=== PATIENT | male | born 1960 | race American Indian/Alaskan Native ===

== ENCOUNTER 2016-10-05 00:34 | Emergency (ER) | payer MEDICARE ==
[2016-10-05 01:43] LABS: Basophils % (Auto) 0.4 % (0.0-1.8); Eosinophils % (Auto) 1.1 % (0.0-4.3); Hematocrit 42.9 % (35.5-45.6); Hemoglobin 14.2 gm/dl (11.8-15.2); Mean Corpuscular HGB Conc 33 % (32-34); Mean Corpuscular Hemoglobin 27 pg (28-32); Mean Corpuscular Volume 83 fl (84-94); Platelet Count 156 K/mm3 (140-440); Red Cell Distribution Width 14.6 % (13.2-15.2); White Blood Count 9.1 K/mm3 (4.5-11.0)
[2016-10-05 02:20] LABS: Alanine Aminotransferase 11 units/L (7-56); Albumin 3.8 g/dL (3.9-5); Alkaline Phosphatase 90 units/L (35-129); BUN/Creatinine Ratio 11.81; Bilirubin,Total 0.3 mg/dL (0.1-1.2); Blood Urea Nitrogen 13 mg/dL (9-20); Calcium 9.4 mg/dL (8.4-10.2); Carbon Dioxide 29 mmol/L (22-30); Chloride 98.7 mmol/L (98-107); Glucose 205 mg/dL (75-100); Lipase 90 units/L (13-60); Potassium 4.3 mmol/L (3.6-5.0); Sodium 139 mmol/L (137-145); Total Protein 7.7 g/dL (6.3-8.2)
[2016-10-05 02:25] LABS: Anion Gap 16 mmol/L
[2016-10-05] MEDS ORDERED: DILAUDID IV ONE ×2 (03:27→04:57)
[2016-10-05] MEDS ORDERED: ZOFRAN IV ONE (03:28)
[2016-10-05] MEDS ORDERED: NACL ONE (03:43)
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
--- NOTE | 2016-10-05 04:43 | Cat Scan Report ---
FINAL REPORT PROCEDURE: CT ABDOMEN PELVIS W CON TECHNIQUE: Computerized axial tomography of the abdomen and pelvis was performed after the IV injection of iodinated nonionic contrast. HISTORY: upper abdominal pain COMPARISON: No prior studies are available for comparison. FINDINGS: Visualized lower thorax: No significant abnormality. Liver: Normal size and attenuation. Spleen: Normal size and attenuation. Gallbladder and biliary system: Normal. Pancreas: Normal. Adrenals: Normal. Kidneys: Both kidneys have normal size. No hydronephrosis. No renal stones or masses.. GI tract: The stomach is normal. The small bowel has a normal caliber. No obstruction, ileus or enteritis. The cecum, appendix and colon are normal. The. Lymph nodes and mesentery: Normal. Vasculature: Normal. Bladder: Normal. Reproductive organs: Normal. Peritoneum: No free fluid. Musculoskeletal structures: No significant abnormality. Other: None. IMPRESSION: There is no evidence of intestinal or urinary tract obstruction. No ileus or enteritis. The appendix is normal.
[2016-10-05 06:21] VITALS: BP 161/74
== END 2016-10-05 05:50 | disposition home or self-care (01) ==
LOC: ED 00:34
DX: K85.00 Idiopathic acute pancreatitis without necrosis or infection (principal); I10 Essential (primary) hypertension; I25.2 Old myocardial infarction; I50.9 Heart failure, unspecified; E11.9 Type 2 diabetes mellitus without complications; F31.9 Bipolar disorder, unspecified; F17.200 Nicotine dependence, unspecified, uncomplicated
CPT/HCPCS: 36415; 74177; 80053; 82962; 83690; 85025; 93005; 93010; 96374; 96375; 96376; 99284; J1170; J2405; Q9967

== ENCOUNTER 2018-03-03 16:35 | Emergency (ER) | payer MEDICARE ==
[2018-03-03 18:10] LABS: Basophils % (Auto) 0.6 % (0.0-1.8); Eosinophils # (Auto) 0.1 K/mm3 (0.0-0.4); Hematocrit 45.4 % (35.5-45.6); Hemoglobin 14.7 gm/dl (11.8-15.2); Lymphocytes # (Auto) 1.9 K/mm3 (1.2-5.4); Lymphocytes % (Auto) 28.8 % (13.4-35.0); Mean Corpuscular HGB Conc 32 % (32-34); Mean Corpuscular Hemoglobin 27 pg (28-32); Mean Corpuscular Volume 84 fl (84-94); Monocytes # (Auto) 0.5 K/mm3 (0.0-0.8); Monocytes % (Auto) 7.8 % (0.0-7.3); Platelet Count 181 K/mm3 (140-440); Red Blood Count 5.38 M/mm3 (3.65-5.03); Red Cell Distribution Width 14.6 % (13.2-15.2)
[2018-03-03 18:13] LABS: BUN/Creatinine Ratio 11; Blood Urea Nitrogen 16 mg/dL (9-20); Hemolysis Index 10
[2018-03-03] MEDS ORDERED: ZOFRAN PO PRN (21:11)
[2018-03-03] MEDS ORDERED: ATIVAN IM PRN (21:13)
[2018-03-03] MEDS ORDERED: TYLENOL PO PRN (21:13)
[2018-03-03] MEDS ORDERED: HALDOL IM PRN (21:13)
[2018-03-03] MEDS ORDERED: MOTRIN PO PRN (21:14)
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
[2018-03-03] MEDS: HALFPRIN EC PO SCH (22:03)
[2018-03-03] MEDS: GLUCOTROL XL PO SCH (22:03)
[2018-03-03] MEDS: COREG PO SCH (23:35)
[2018-03-03] MEDS: ZESTRIL PO SCH (23:35)
[2018-03-03] MEDS: PEPCID PO SCH (23:35)
[2018-03-04 03:18] LABS: Bilirubin,Urine NEG (Negative); Blood,Urine SM (Negative); Color,Urine Yellow (Yellow)
[2018-03-04 03:21] LABS: Amphetamine Screen,Urine PRESUMPTIVE NEGATIVE; Benzodiazepines Screen,Urine PRESUMPTIVE NEGATIVE; Methadone Screen,Urine PRESUMPTIVE NEGATIVE; Opiate Screen,Urine PRESUMPTIVE NEGATIVE
[2018-03-04 03:33] LABS: Cannabinoid Screen,Urine PRESUMPTIVE POSITIVE; Cocaine Screen,Urine PRESUMPTIVE POSITIVE
[2018-03-04] MEDS: GLUCOTROL XL PO SCH (10:21)
[2018-03-04] MEDS: COREG PO SCH (10:21)
[2018-03-04] MEDS: PEPCID PO SCH (10:21)
[2018-03-04] MEDS: HALFPRIN EC PO SCH (10:21)
[2018-03-04] MEDS: ZESTRIL PO SCH (10:22)
[2018-03-04 12:14] VITALS: BP 129/59
== END 2018-03-04 12:12 ==
LOC: ED 16:35
DX: F31.9 Bipolar disorder, unspecified (principal); I10 Essential (primary) hypertension; I25.2 Old myocardial infarction; E11.9 Type 2 diabetes mellitus without complications; M19.90 Unspecified osteoarthritis, unspecified site; F17.200 Nicotine dependence, unspecified, uncomplicated; Z95.0 Presence of cardiac pacemaker; Z95.5 Presence of coronary angioplasty implant and graft
CPT/HCPCS: 36415; 80048; 80307; 81001; 82962; 85025; 99285; A9270; G0480; 80320

== ENCOUNTER 2018-12-17 14:56 | Inpatient (IN) | payer MEDICARE ==
--- NOTE | 2018-12-17 15:29 | Emergency Department Report ---
Blank Doc - Documentation Documentation: This is a 58-year-old male that presents with chest pain and bilateral leg hemalatha ns. This initial assessment/diagnostic orders/clinical plan/treatment(s) is/are subject to change based on patient's health status, clinical progression and re- assessment by fellow clinical providers in the ED. Further treatment and workup at subsequent clinical providers discretion. Patient/guardians urged not to elope from the ED as their condition may be serious if not clinically assessed and managed. Initial orders include: 1- Patient sent to MAIN ED for further evaluation and treatment 2- labs 3- EKG 4- CXR
[2018-12-17 15:53] LABS: Hematocrit 35.6 % (35.5-45.6); Hemoglobin 12.1 gm/dl (11.8-15.2); Mean Corpuscular HGB Conc 34 % (32-34); Mean Corpuscular Volume 82 fl (84-94); Platelet Count 185 K/mm3 (140-440); Red Blood Count 4.32 M/mm3 (3.65-5.03); Red Cell Distribution Width 14.7 % (13.2-15.2)
[2018-12-17 16:03] LABS: INR 0.93 (0.87-1.13)
[2018-12-17 16:04] LABS: Partial Thromboplastin Time 27.4 Sec. (24.2-36.6)
[2018-12-17 16:18] LABS: Creatine Kinase MB 5.9 ng/mL (0.0-4.0)
[2018-12-17 16:19] LABS: BUN/Creatinine Ratio 10; Blood Urea Nitrogen 12 mg/dL (9-20); Hemolysis Index 25
[2018-12-17] MEDS ORDERED: NITROSTAT SL ONE (16:43)
[2018-12-17] MEDS ORDERED: ASPIRIN PO ONE (16:43)
--- NOTE | 2018-12-17 16:54 | XRay Report ---
PROCEDURE: XR CHEST ROUTINE 2V TECHNIQUE: PA and lateral views of the chest. HISTORY: Chest Pain COMPARISONS: CXR 01/16/2018 FINDINGS: Lines, tubes, and devices: 3-lead right subclavian pacemaker has been placed terminating in the regio n of the right atrium, right ventricle, and left ventricle Lungs and pleura: Trachea is normal in position. Lungs are clear of infiltrate, pleural effusion, vas cular congestion, or pneumothorax. No change Cardiomediastinal silhouette: Cardiac and mediastinal silhouettes are unremarkable. Other: Bony structures are intact. IMPRESSION: No acute cardiopulmonary process seen. No change.. This document is electronically signed by Isaura Sim MD., December 17 2018 04:52:23 PM ET
[2018-12-17 17:06] LABS: Basophils % (Manual) 0 % (0.0-1.8); Eosinophils % (Manual) 0 % (0.0-4.3); Total Cells Counted 100
[2018-12-17 17:07] LABS: Ovalocytes Few
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
[2018-12-17] MEDS ORDERED: MORPHINE IV ONE (19:58)
--- NOTE | 2018-12-17 20:35 | Cat Scan Report ---
PROCEDURE: CT NECK W CON TECHNIQUE: Following administration of IV contrast axial helical imaging was performed through the n remy with sagittal and coronal reformatted images obtained. HISTORY: sore throat, muffled voice, diff swallowing COMPARISONS: CT angiogram chest also performed today FINDINGS: There is no evidence of a cervical mass and no evidence of an inflammatory process in the cervical so ft tissues. There is no evidence of compromise of the airway. The epiglottis and aryepiglottic folds are normal thickness. The thyroid gland is normal in appearance. There are mildly prominent cervical lymph nodes that are nonspecific in appearance but are most likel y inflammatory in nature. There is normal enhancement of the major cervical vascular structures. There is plaque formation in t he right carotid bifurcation with less than 30% stenosis of the proximal right internal carotid arter y. There are are bilateral mandibular torus and a torus palatini. The paranasal and mastoid sinuses are notable for moderate left sphenoid sinus mucosal thickening and mild right sphenoid sinus mucosal thickening. The mastoid sinuses are unremarkable. The visualized portions of the orbits are unremarkable. The cervical spine is notable for the appearance of ankylosis with marked ossification of the anterio r longitudinal ligament. There is multiple level moderate to marked cervical canal stenosis secondary to spondylitic change an d ossification of the posterior longitudinal ligament superimposed on congenital cervical canal steno sis. IMPRESSION: 1. No evidence of a cervical mass and no evidence of an inflammatory process in the cervical soft tis sues. 2. No evidence of compromise of the airway. 3. Mildly prominent cervical lymph nodes that are most likely inflammatory in nature. 4. Mandibular torus and torus palatini. 5. Less than 30% stenosis proximal right internal carotid artery. 6. 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 If further imaging is required, MRI may be helpful. 7. Sphenoid sinus disease. This document is electronically signed by Mary Conway MD., December 17 2018 08:33:33 PM ET
--- NOTE | 2018-12-17 20:44 | Cat Scan Report ---
PROCEDURE: CT ANGIO CHEST TECHNIQUE: Following administration of IV contrast axial helical imaging was performed through the c hest with sagittal and coronal reformatted images and maximum intensity projection images obtained. HISTORY: chest pain, sob COMPARISONS: CT neck also performed today and chest x-ray also performed today FINDINGS: There is no evidence of infiltrate, pneumothorax or pleural fluid collection. The trachea and bronchi are patent. The heart is enlarged with multiple lead AICD. There appears to be increased thickness of the left ve ntricular wall. The thoracic aorta is normal caliber and without evidence of dissection. There is no evidence of intrathoracic adenopathy. No filling defects are demonstrated within the pulmonary arteries to suggest the presence of pulmonar y artery emboli. The visualized portion of the upper abdomen is unremarkable. The bony structures are notable for spondylitic change of the thoracic spine. IMPRESSION: 1. No evidence of an acute intrathoracic process. 2. No evidence of pulmonary artery emboli and no evidence of aortic dissection. 3. Cardiomegaly with multiple lead AICD and appearance of increased thickness of the left ventricular wall. This document is electronically signed by Mary Conway MD., December 17 2018 08:42:05 PM ET
[2018-12-17 20:57] LABS: Amphetamine Screen,Urine PRESUMPTIVE NEGATIVE; Benzodiazepines Screen,Urine PRESUMPTIVE NEGATIVE; Cannabinoid Screen,Urine PRESUMPTIVE NEGATIVE; Cocaine Screen,Urine PRESUMPTIVE NEGATIVE; Methadone Screen,Urine PRESUMPTIVE NEGATIVE; Opiate Screen,Urine PRESUMPTIVE NEGATIVE
[2018-12-17] MEDS ORDERED: ZOFRAN IV PRN (22:00)
[2018-12-17] MEDS ORDERED: D50W (25GM) Syringe IV PRN (22:00)
[2018-12-17] MEDS ORDERED: SODIUM CHLORIDE FLUSH SYRINGE 10 ML IV PRN (22:00)
[2018-12-17] MEDS ORDERED: TYLENOL PO PRN (22:00)
[2018-12-17] MEDS ORDERED: APRESOLINE IV PRN (22:04)
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
[2018-12-17] MEDS: SODIUM CHLORIDE FLUSH SYRINGE 10 ML IV SCH (22:17)
[2018-12-17 23:19] LABS: Creatine Kinase MB 2.8 ng/mL (0.0-4.0)
[2018-12-18] MEDS ORDERED: APRESOLINE ONE (00:50)
[2018-12-18] MEDS: DUONEB *Not for PRN Use IH SCH ×4 (01:54→21:51)
[2018-12-18] MEDS ORDERED: D50W (25GM) Syringe IV PRN (06:24)
[2018-12-18 06:35] LABS: Basophils % (Auto) 0.6 % (0.0-1.8); Eosinophils # (Auto) 0.2 K/mm3 (0.0-0.4); Eosinophils % (Auto) 2.5 % (0.0-4.3); Hematocrit 36.1 % (35.5-45.6); Lymphocytes # (Auto) 2.4 K/mm3 (1.2-5.4); Lymphocytes % (Auto) 38.3 % (13.4-35.0); Mean Corpuscular HGB Conc 33 % (32-34); Mean Corpuscular Volume 83 fl (84-94); Monocytes # (Auto) 0.6 K/mm3 (0.0-0.8); Monocytes % (Auto) 8.8 % (0.0-7.3); Platelet Count 172 K/mm3 (140-440); Red Blood Count 4.35 M/mm3 (3.65-5.03); Red Cell Distribution Width 14.4 % (13.2-15.2)
[2018-12-18 06:57] LABS: Creatine Kinase MB 3.9 ng/mL (0.0-4.0)
[2018-12-18 06:58] LABS: BUN/Creatinine Ratio 12; Blood Urea Nitrogen 12 mg/dL (9-20); Calcium 8.9 mg/dL (8.4-10.2); Hemolysis Index 6
[2018-12-18] MEDS: GLUCOPHAGE PO SCH (08:25)
[2018-12-18] MEDS: GLUCOTROL XL PO SCH ×2 (08:25→18:09)
[2018-12-18] MEDS: HumaLOG SUB-Q SCH ×4 (08:26→22:25)
[2018-12-18] MEDS: NORVASC PO SCH (09:38)
[2018-12-18] MEDS: COREG PO SCH ×2 (09:38→22:23)
[2018-12-18] MEDS: HALFPRIN EC PO SCH (09:38)
[2018-12-18] MEDS: LOVENOX SUB-Q SCH (09:39)
[2018-12-18] MEDS: SODIUM CHLORIDE FLUSH SYRINGE 10 ML IV SCH ×2 (09:39→22:25)
[2018-12-18] MEDS ORDERED: LOVENOX SUB-Q SCH (10:00)
[2018-12-18] MEDS ORDERED: NON-FORMULARY (Norvasc 10 MG) PO SCH (10:00)
[2018-12-18] MEDS: HABITROL TD SCH (10:58)
--- NOTE | 2018-12-18 11:46 | Event Note ---
Date: 12/18/18 Cardiology note dictated. #1 chest pain atypical #2 cardiomyopathy status post AICD #3 hypertension #4 hyperlipidemia #5 diabetes #6 leg pains Cardiac status appears to be satisfactory we will monitor and follow along with you. Thank you Dr. TONI Juárez
[2018-12-18] MEDS: NEURONTIN PO SCH ×2 (14:34→22:25)
--- NOTE | 2018-12-18 16:34 | Progress Note ---
Assessment and Plan Assessment and plan: --Unstable angina; continue current cardiac medications Cardiology evaluation noted and appreciated, [place] screen 3 negative Supportive care --History of coronary artery disease; continue current management Cardiology following --Acute on chronic systolic congestive heart failure Continue current antiseizure medications cardiology following --Type 2 diabetes mellitus; Accu-Cheks sliding scale coverage ADA diet Insulin as needed --Dyslipidemia; continue statin --DVT prophylaxis; Lovenox --Hoarseness; for many years, patient advised many times to see ENT For further evaluation as outpatient Plan monitor patient closely and adjust the management as needed Follow-up cardiology evaluation and recommendations History Interval history: Patient seen and examined medical records reviewed No new events reported by the nursing staff Admitted with chest pain feels slightly better Cardiology following Alert awake oriented 3 Vital signs noted Hospitalist Physical - Constitutional Vitals: Temp Pulse Resp BP Pulse Ox 97.8 F 76 18 141/56 96 12/18/18 08:14 12/18/18 13:55 12/18/18 13:55 12/18/18 09:38 12/18/18 10:00 General appearance: Present: no acute distress, well-nourished - EENT Eyes: Present: PERRL, EOM intact - Neck Neck: Present: supple, normal ROM - Respiratory Respiratory effort: normal Respiratory: bilateral: diminished, negative: rales, rhonchi, wheezing - Cardiovascular Rhythm: regular Heart Sounds: Present: S1 & S2 - Extremities Extremities: no ischemia, No edema - Abdominal General gastrointestinal: soft, non-tender, non-distended, normal bowel sounds - Integumentary Integumentary: Present: clear, warm - Psychiatric Psychiatric: appropriate mood/affect, cooperative - Neurologic Neurologic: CNII-XII intact, moves all extremities Results - Labs CBC & Chem 7: 12/18/18 05:38 12/18/18 05:38 Labs: Laboratory Last Values WBC 6.3 K/mm3 (4.5-11.0) 12/18/18 05:38 RBC 4.35 M/mm3 (3.65-5.03) 12/18/18 05:38 Hgb 12.0 gm/dl (11.8-15.2) 12/18/18 05:38 Hct 36.1 % (35.5-45.6) 12/18/18 05:38 MCV 83 fl (84-94) L 12/18/18 05:38 MCH 28 pg (28-32) 12/18/18 05:38 MCHC 33 % (32-34) 12/18/18 05:38 RDW 14.4 % (13.2-15.2) 12/18/18 05:38 Plt Count 172 K/mm3 (140-440) 12/18/18 05:38 Lymph % (Auto) 38.3 % (13.4-35.0) H 12/18/18 05:38 [place] % (Auto) 8.8 % (0.0-7.3) H 12/18/18 05:38 Eos % (Auto) 2.5 % (0.0-4.3) 12/18/18 05:38 Baso % (Auto) 0.6 % (0.0-1.8) 12/18/18 05:38 Lymph # 2.4 K/mm3 (1.2-5.4) 12/18/18 05:38 [place] # 0.6 K/mm3 (0.0-0.8) 12/18/18 05:38 Eos # 0.2 K/mm3 (0.0-0.4) 12/18/18 05:38 Baso # 0.0 K/mm3 (0.0-0.1) 12/18/18 05:38 Add Manual Diff Complete 12/17/18 15:43 Total Counted 100 12/17/18 15:43 Seg Neutrophils % 49.8 % (40.0-70.0) 12/18/18 05:38 Seg Neuts % (Manual) 68.0 % (40.0-70.0) 12/17/18 15:43 Band Neutrophils % 0 % 12/17/18 15:43 Lymphocytes % (Manual) 27.0 % (13.4-35.0) 12/17/18 15:43 Reactive Lymphs % (Man) 0 % 12/17/18 15:43 Monocytes % (Manual) 5.0 % (0.0-7.3) 12/17/18 15:43 Eosinophils % (Manual) 0 % (0.0-4.3) 12/17/18 15:43 Basophils % (Manual) 0 % (0.0-1.8) 12/17/18 15:43 Metamyelocytes % 0 % 12/17/18 15:43 Myelocytes % 0 % 12/17/18 15:43 Promyelocytes % 0 % 12/17/18 15:43 Blast Cells % 0 % 12/17/18 15:43 Nucleated RBC % Not Reportable 12/17/18 15:43 Seg Neutrophils # 3.1 K/mm3 (1.8-7.7) 12/18/18 05:38 Seg Neutrophils # Man 5.2 K/mm3 (1.8-7.7) 12/17/18 15:43 Band Neutrophils # 0.0 K/mm3 12/17/18 15:43 Lymphocytes # (Manual) 2.1 K/mm3 (1.2-5.4) 12/17/18 15:43 Abs React Lymphs (Man) 0.0 K/mm3 12/17/18 15:43 Monocytes # (Manual) 0.4 K/mm3 (0.0-0.8) 12/17/18 15:43 Eosinophils # (Manual) 0.0 K/mm3 (0.0-0.4) 12/17/18 15:43 Basophils # (Manual) 0.0 K/mm3 (0.0-0.1) 12/17/18 15:43 Metamyelocytes # 0.0 K/mm3 12/17/18 15:43 Myelocytes # 0.0 K/mm3 12/17/18 15:43 Promyelocytes # 0.0 K/mm3 12/17/18 15:43 Blast Cells # 0.0 K/mm3 12/17/18 15:43 WBC Morphology Not Reportable 12/17/18 15:43 Hypersegmented Neuts Not Reportable 12/17/18 15:43 Hyposegmented Neuts Not Reportable 12/17/18 15:43 Hypogranular Neuts Not Reportable 12/17/18 15:43 Smudge Cells Not Reportable 12/17/18 15:43 Toxic Granulation Not Reportable 12/17/18 15:43 Toxic Vacuolation Not Reportable 12/17/18 15:43 Dohle Bodies Not Reportable 12/17/18 15:43 Pelger-Huet Anomaly Not Reportable 12/17/18 15:43 Kathia Rods Not Reportable 12/17/18 15:43 Platelet Estimate Appears normal 12/17/18 15:43 Clumped Platelets Not Reportable 12/17/18 15:43 Plt Clumps, EDTA Not Reportable 12/17/18 15:43 Large Platelets Not Reportable 12/17/18 15:43 Giant Platelets Not Reportable 12/17/18 15:43 Platelet Satelliting Not Reportable 12/17/18 15:43 Plt Morphology Comment Not Reportable 12/17/18 15:43 RBC Morphology Not Reportable 12/17/18 15:43 Dimorphic RBCs Not Reportable 12/17/18 15:43 Polychromasia Not Reportable 12/17/18 15:43 Hypochromasia Not Reportable 12/17/18 15:43 Poikilocytosis Not Reportable 12/17/18 15:43 Anisocytosis Not Reportable 12/17/18 15:43 Microcytosis Not Reportable 12/17/18 15:43 Macrocytosis Not Reportable 12/17/18 15:43 Spherocytes Not Reportable 12/17/18 15:43 Pappenheimer Bodies Not Reportable 12/17/18 15:43 Sickle Cells Not Reportable 12/17/18 15:43 Target Cells Not Reportable 12/17/18 15:43 Tear Drop Cells Not Reportable 12/17/18 15:43 Ovalocytes Few 12/17/18 15:43 Helmet Cells Not Reportable 12/17/18 15:43 [place] Bodies Not Reportable 12/17/18 15:43 [place] Rings Not Reportable 12/17/18 15:43 Eneida Cells Not Reportable 12/17/18 15:43 Bite Cells Not Reportable 12/17/18 15:43 Crenated Cell Not Reportable 12/17/18 15:43 Elliptocytes Not Reportable 12/17/18 15:43 Acanthocytes (Spur) Not Reportable 12/17/18 15:43 Rouleaux Not Reportable 12/17/18 15:43 Hemoglobin C Crystals Not Reportable 12/17/18 15:43 Schistocytes Not Reportable 12/17/18 15:43 Malaria parasites Not Reportable 12/17/18 15:43 Zander Bodies Not Reportable 12/17/18 15:43 Hem Pathologist Commnt No 12/17/18 15:43 PT 13.0 Sec. (12.2-14.9) 12/17/18 15:43 INR 0.93 (0.87-1.13) 12/17/18 15:43 APTT 27.4 Sec. (24.2-36.6) 12/17/18 15:43 Sodium 143 mmol/L (137-145) 12/18/18 05:38 Potassium 3.7 mmol/L (3.6-5.0) 12/18/18 05:38 Chloride 102.9 mmol/L (98-107) 12/18/18 05:38 Carbon Dioxide 27 mmol/L (22-30) 12/18/18 05:38 Anion Gap 17 mmol/L 12/18/18 05:38 BUN 12 mg/dL (9-20) 12/18/18 05:38 Creatinine 1.0 mg/dL (0.8-1.5) 12/18/18 05:38 Estimated GFR > 60 ml/min 12/18/18 05:38 BUN/Creatinine Ratio 12 % 12/18/18 05:38 Glucose 295 mg/dL (75-100) H 12/18/18 05:38 POC Glucose 200 (70-105) H 12/18/18 11:39 Calcium 8.9 mg/dL (8.4-10.2) 12/18/18 05:38 Total Creatine Kinase 108 units/L (55-170) 12/18/18 05:38 CK-MB (CK-2) 3.9 ng/mL (0.0-4.0) 12/18/18 05:38 CK-MB (CK-2) Rel Index 3.6 (0-4) 12/18/18 05:38 Troponin T < 0.010 ng/mL (0.00-0.029) 12/18/18 05:38 Urine Opiates Screen Presumptive negative 12/17/18 20:36 Urine Methadone Screen Presumptive negative 12/17/18 20:36 Ur Barbiturates Screen Presumptive negative 12/17/18 20:36 Ur Phencyclidine Scrn Presumptive negative 12/17/18 20:36 Ur Amphetamines Screen Presumptive negative 12/17/18 20:36 U Benzodiazepines Scrn Presumptive negative 12/17/18 20:36 Urine Cocaine Screen Presumptive negative 12/17/18 20:36 U Marijuana (THC) Screen Presumptive negative 12/17/18 20:36 Drugs of Abuse Note Disclamer 12/17/18 20:36 Active Medications - Current Medications Current Medications: Generic Name Dose Route Start Last Admin Trade Name Freq PRN Reason Stop Dose Admin Acetaminophen 650 mg 12/17/18 22:00 Tylenol PO Q4H PRN Pain MILD(1-3)/Fever >100.5/DE [place] F[place] Albuterol/Ipratropium 1 ampul 12/18/18 02:00 12/18/18 13:38 Duoneb *Not For Prn Use* IH 1 ampul Q6HRT JAZMINE Administration Amlodipine Besylate 10 mg 12/18/18 10:00 12/18/18 09:38 Norvasc PO 10 mg DAILY JAZMINE Administration Aspirin 81 mg 12/18/18 10:00 12/18/18 09:38 Halfprin Ec PO 81 mg QDAY JAZMINE Administration Atorvastatin Calcium 40 mg 12/18/18 10:00 12/18/18 09:37 Lipitor PO 40 mg DAILY JAZMINE Administration Carvedilol 25 mg 12/18/18 10:00 12/18/18 09:38 Coreg PO 25 mg BID JAZMINE Administration Dextrose 50 ml 12/18/18 06:24 D50w (25gm) Syringe IV PRN PRN Hypoglycemia Enoxaparin Sodium 40 mg 12/18/18 10:00 12/18/18 09:39 Lovenox SUB-Q 40 mg QDAY@1000 JAZMINE Administration Gabapentin 100 mg 12/18/18 14:00 12/18/18 14:34 Neurontin PO 100 mg Q8HR JAZMINE Administration Glipizide 10 mg 12/18/18 08:00 12/18/18 08:25 Glucotrol Xl PO 10 mg BIDDIAB JAZMINE Administration Hydralazine HCl 5 mg 12/17/18 22:04 Apresoline IV Q6H PRN Hypertension Insulin Human Lispro 0 unit 12/18/18 07:30 12/18/18 11:48 Humalog SUB-Q 4 unit ACHS JAZMINE Administration Protocol Metformin HCl 1,000 mg 12/18/18 08:00 12/18/18 08:25 Glucophage PO 1,000 mg QDDIAB JAZMINE Administration Morphine Sulfate 2 mg 12/17/18 22:00 Morphine IV Q4H PRN Pain, Moderate (4-6) Nicotine 14 mg 12/18/18 11:00 12/18/18 10:58 Habitrol TD 14 mg QDAY JAZMINE Administration Ondansetron HCl 4 mg 12/17/18 22:00 Zofran IV Q4H PRN Nausea And Vomiting Sodium Chloride 10 ml 12/17/18 22:00 12/18/18 09:39 Sodium Chloride Flush Syringe 10 Ml IV 10 ml BID JAZMINE Administration Sodium Chloride 10 ml 12/17/18 22:00 Sodium Chloride Flush Syringe 10 Ml IV PRN PRN LINE FLUSH
--- NOTE | 2018-12-18 22:26 | Consultation ---
CARDIOLOGY EVALUATION HISTORY OF PRESENT ILLNESS: The patient is a 58-year-old gentleman, who was admitted with chest pain and leg pains. The patient is well known to us with coronary artery disease, congestive heart failure, hypertension, hyperlipidemia and diabetes. The patient complains about chest pain. He describes it as a pressure type of sensation lasting for a long time anytime and sometimes it is sharp pains. None of these symptoms are related to any activity, but when he swallows water or food, he notices this pressure type of discomfort. When walking, he had no problems. He also complains about leg pains, sometimes with walking. He is known to have cardiomyopathy. His last ejection fraction was 37%. The patient had previous AICD placement and is followed by Dr. Solano. The patient was also seen by Dr. Perez at [place]. Last stress test was done in 12/2017, which showed no evidence of ischemia. Currently, he denies alcohol, drugs or tobacco, but he used to indulge in all of them in the past. No drug allergies. CURRENT MEDICATIONS: Reviewed, which include carvedilol 25 mg p.o. b.i.d., Lipitor 40 daily, Norvasc, aspirin, metformin and glipizide. The patient claims to be taking medicines regularly. REVIEW OF SYSTEMS: HEAD, EYES, EARS, NOSE AND THROAT: No symptoms. GASTROINTESTINAL: No abdominal pain, nausea, or vomiting. GENITOURINARY: No symptoms. CENTRAL NERVOUS SYSTEM: No symptoms. ENDOCRINE: The patient is known to have diabetes. LOCOMOTOR: The patient complains about leg pains. PHYSICAL EXAMINATION: GENERAL: Adult gentleman, well-built and nourished, in no acute distress. Pleasant and cooperative. HEAD, EYES, EARS, NOSE AND THROAT: Unremarkable. NECK: Supple. No thyromegaly. Both carotids are palpable and equal. Neck veins are flat. CHEST: Symmetrical. LUNGS: Essentially clear. CARDIOVASCULAR: S1 and S2 are heard well. Grade 1-2/6 soft systolic murmur is present. ABDOMEN: Soft, nontender. EXTREMITIES: No calf tenderness. Difficult to feel the palpable pulses. LABORATORY DATA: EKG, pacemaker rhythm with 1:1 conduction. WBC 6.3, hemoglobin 12, hematocrit 36.1. Blood sugar 295. Troponin negative. IMPRESSION: 1. Chest pain, atypical. 2. Cardiomyopathy, status post AICD placement. 3. Congestive heart failure. 4. Hypertension. 5. Hyperlipidemia. 6. Diabetes. 7. Leg pains, etiology uncertain. The patient is seen for cardiac evaluation. Clinically, cardiac status appears to be satisfactory. We will continue monitoring and following along with you. Thank you for allowing me to participate in the care of this gentleman. JOB# [id number] KB/NTS
[2018-12-18] MEDS: MORPHINE IV PRN (23:10)
[2018-12-19] MEDS: DUONEB *Not for PRN Use IH SCH ×4 (03:29→22:25)
[2018-12-19] MEDS: NEURONTIN PO SCH ×3 (05:27→22:17)
--- NOTE | 2018-12-19 09:02 | Progress Note ---
Assessment and Plan Assessment and plan: --Unstable angina; continue current cardiac medications Cardiology evaluation noted and appreciated, [place] screen 3 negative Supportive care --History of coronary artery disease; continue current cardiac medications Cardiology following --Acute on chronic systolic congestive heart failure Continue current failure medications low-sodium diet --Type 2 diabetes mellitus; Accu-Cheks sliding scale coverage ADA diet Insulin as needed --Dyslipidemia; continue statin --DVT prophylaxis; Lovenox --Hoarseness; for many years, patient advised many times to see ENT For further evaluation as outpatient Plan monitor patient closely and adjust the management as needed Follow-up cardiology evaluation and recommendations History Interval history: Patient seen and examined medical records reviewed Feels better no new complaints Alert awake oriented 3 Vital signs noted Hospitalist Physical - Constitutional Vitals: Temp Pulse Resp BP Pulse Ox 98.0 F 72 16 124/64 96 12/19/18 08:54 12/19/18 08:54 12/19/18 08:54 12/19/18 08:54 12/19/18 08:54 General appearance: Present: no acute distress, well-nourished - EENT Eyes: Present: PERRL, EOM intact - Neck Neck: Present: supple, normal ROM - Respiratory Respiratory effort: normal Respiratory: bilateral: diminished, negative: rales, rhonchi, wheezing - Cardiovascular Rhythm: regular Heart Sounds: Present: S1 & S2 - Extremities Extremities: no ischemia, pulses intact - Abdominal General gastrointestinal: soft, non-tender, non-distended, normal bowel sounds - Integumentary Integumentary: Present: clear, warm - Psychiatric Psychiatric: appropriate mood/affect, cooperative - Neurologic Neurologic: CNII-XII intact, moves all extremities Results - Labs CBC & Chem 7: 12/18/18 05:38 12/18/18 05:38 Labs: Laboratory Last Values WBC 6.3 K/mm3 (4.5-11.0) 12/18/18 05:38 RBC 4.35 M/mm3 (3.65-5.03) 12/18/18 05:38 Hgb 12.0 gm/dl (11.8-15.2) 12/18/18 05:38 Hct 36.1 % (35.5-45.6) 12/18/18 05:38 MCV 83 fl (84-94) L 12/18/18 05:38 MCH 28 pg (28-32) 12/18/18 05:38 MCHC 33 % (32-34) 12/18/18 05:38 RDW 14.4 % (13.2-15.2) 12/18/18 05:38 Plt Count 172 K/mm3 (140-440) 12/18/18 05:38 Lymph % (Auto) 38.3 % (13.4-35.0) H 12/18/18 05:38 [place] % (Auto) 8.8 % (0.0-7.3) H 12/18/18 05:38 Eos % (Auto) 2.5 % (0.0-4.3) 12/18/18 05:38 Baso % (Auto) 0.6 % (0.0-1.8) 12/18/18 05:38 Lymph # 2.4 K/mm3 (1.2-5.4) 12/18/18 05:38 [place] # 0.6 K/mm3 (0.0-0.8) 12/18/18 05:38 Eos # 0.2 K/mm3 (0.0-0.4) 12/18/18 05:38 Baso # 0.0 K/mm3 (0.0-0.1) 12/18/18 05:38 Add Manual Diff Complete 12/17/18 15:43 Total Counted 100 12/17/18 15:43 Seg Neutrophils % 49.8 % (40.0-70.0) 12/18/18 05:38 Seg Neuts % (Manual) 68.0 % (40.0-70.0) 12/17/18 15:43 Band Neutrophils % 0 % 12/17/18 15:43 Lymphocytes % (Manual) 27.0 % (13.4-35.0) 12/17/18 15:43 Reactive Lymphs % (Man) 0 % 12/17/18 15:43 Monocytes % (Manual) 5.0 % (0.0-7.3) 12/17/18 15:43 Eosinophils % (Manual) 0 % (0.0-4.3) 12/17/18 15:43 Basophils % (Manual) 0 % (0.0-1.8) 12/17/18 15:43 Metamyelocytes % 0 % 12/17/18 15:43 Myelocytes % 0 % 12/17/18 15:43 Promyelocytes % 0 % 12/17/18 15:43 Blast Cells % 0 % 12/17/18 15:43 Nucleated RBC % Not Reportable 12/17/18 15:43 Seg Neutrophils # 3.1 K/mm3 (1.8-7.7) 12/18/18 05:38 Seg Neutrophils # Man 5.2 K/mm3 (1.8-7.7) 12/17/18 15:43 Band Neutrophils # 0.0 K/mm3 12/17/18 15:43 Lymphocytes # (Manual) 2.1 K/mm3 (1.2-5.4) 12/17/18 15:43 Abs React Lymphs (Man) 0.0 K/mm3 12/17/18 15:43 Monocytes # (Manual) 0.4 K/mm3 (0.0-0.8) 12/17/18 15:43 Eosinophils # (Manual) 0.0 K/mm3 (0.0-0.4) 12/17/18 15:43 Basophils # (Manual) 0.0 K/mm3 (0.0-0.1) 12/17/18 15:43 Metamyelocytes # 0.0 K/mm3 12/17/18 15:43 Myelocytes # 0.0 K/mm3 12/17/18 15:43 Promyelocytes # 0.0 K/mm3 12/17/18 15:43 Blast Cells # 0.0 K/mm3 12/17/18 15:43 WBC Morphology Not Reportable 12/17/18 15:43 Hypersegmented Neuts Not Reportable 12/17/18 15:43 Hyposegmented Neuts Not Reportable 12/17/18 15:43 Hypogranular Neuts Not Reportable 12/17/18 15:43 Smudge Cells Not Reportable 12/17/18 15:43 Toxic Granulation Not Reportable 12/17/18 15:43 Toxic Vacuolation Not Reportable 12/17/18 15:43 Dohle Bodies Not Reportable 12/17/18 15:43 Pelger-Huet Anomaly Not Reportable 12/17/18 15:43 Kathia Rods Not Reportable 12/17/18 15:43 Platelet Estimate Appears normal 12/17/18 15:43 Clumped Platelets Not Reportable 12/17/18 15:43 Plt Clumps, EDTA Not Reportable 12/17/18 15:43 Large Platelets Not Reportable 12/17/18 15:43 Giant Platelets Not Reportable 12/17/18 15:43 Platelet Satelliting Not Reportable 12/17/18 15:43 Plt Morphology Comment Not Reportable 12/17/18 15:43 RBC Morphology Not Reportable 12/17/18 15:43 Dimorphic RBCs Not Reportable 12/17/18 15:43 Polychromasia Not Reportable 12/17/18 15:43 Hypochromasia Not Reportable 12/17/18 15:43 Poikilocytosis Not Reportable 12/17/18 15:43 Anisocytosis Not Reportable 12/17/18 15:43 Microcytosis Not Reportable 12/17/18 15:43 Macrocytosis Not Reportable 12/17/18 15:43 Spherocytes Not Reportable 12/17/18 15:43 Pappenheimer Bodies Not Reportable 12/17/18 15:43 Sickle Cells Not Reportable 12/17/18 15:43 Target Cells Not Reportable 12/17/18 15:43 Tear Drop Cells Not Reportable 12/17/18 15:43 Ovalocytes Few 12/17/18 15:43 Helmet Cells Not Reportable 12/17/18 15:43 [place] Bodies Not Reportable 12/17/18 15:43 [place] Rings Not Reportable 12/17/18 15:43 Eneida Cells Not Reportable 12/17/18 15:43 Bite Cells Not Reportable 12/17/18 15:43 Crenated Cell Not Reportable 12/17/18 15:43 Elliptocytes Not Reportable 12/17/18 15:43 Acanthocytes (Spur) Not Reportable 12/17/18 15:43 Rouleaux Not Reportable 12/17/18 15:43 Hemoglobin C Crystals Not Reportable 12/17/18 15:43 Schistocytes Not Reportable 12/17/18 15:43 Malaria parasites Not Reportable 12/17/18 15:43 Zander Bodies Not Reportable 12/17/18 15:43 Hem Pathologist Commnt No 12/17/18 15:43 PT 13.0 Sec. (12.2-14.9) 12/17/18 15:43 INR 0.93 (0.87-1.13) 12/17/18 15:43 APTT 27.4 Sec. (24.2-36.6) 12/17/18 15:43 Sodium 143 mmol/L (137-145) 12/18/18 05:38 Potassium 3.7 mmol/L (3.6-5.0) 12/18/18 05:38 Chloride 102.9 mmol/L (98-107) 12/18/18 05:38 Carbon Dioxide 27 mmol/L (22-30) 12/18/18 05:38 Anion Gap 17 mmol/L 12/18/18 05:38 BUN 12 mg/dL (9-20) 12/18/18 05:38 Creatinine 1.0 mg/dL (0.8-1.5) 12/18/18 05:38 Estimated GFR > 60 ml/min 12/18/18 05:38 BUN/Creatinine Ratio 12 % 12/18/18 05:38 Glucose 295 mg/dL (75-100) H 12/18/18 05:38 POC Glucose 64 (70-105) L 12/19/18 07:56 Calcium 8.9 mg/dL (8.4-10.2) 12/18/18 05:38 Total Creatine Kinase 108 units/L (55-170) 12/18/18 05:38 CK-MB (CK-2) 3.9 ng/mL (0.0-4.0) 12/18/18 05:38 CK-MB (CK-2) Rel Index 3.6 (0-4) 12/18/18 05:38 Troponin T < 0.010 ng/mL (0.00-0.029) 12/18/18 05:38 Urine Opiates Screen Presumptive negative 12/17/18 20:36 Urine Methadone Screen Presumptive negative 12/17/18 20:36 Ur Barbiturates Screen Presumptive negative 12/17/18 20:36 Ur Phencyclidine Scrn Presumptive negative 12/17/18 20:36 Ur Amphetamines Screen Presumptive negative 12/17/18 20:36 U Benzodiazepines Scrn Presumptive negative 12/17/18 20:36 Urine Cocaine Screen Presumptive negative 12/17/18 20:36 U Marijuana (THC) Screen Presumptive negative 12/17/18 20:36 Drugs of Abuse Note Disclamer 12/17/18 20:36 Active Medications - Current Medications Current Medications: Generic Name Dose Route Start Last Admin Trade Name Freq PRN Reason Stop Dose Admin Acetaminophen 650 mg 12/17/18 22:00 Tylenol PO Q4H PRN Pain MILD(1-3)/Fever >100.5/[place] Albuterol/Ipratropium 1 ampul 12/18/18 02:00 12/19/18 03:29 Duoneb *Not For Prn Use* IH 1 ampul Q6HRT JAZMINE Administration Amlodipine Besylate 10 mg 12/18/18 10:00 12/18/18 09:38 Norvasc PO 10 mg DAILY JAZMINE Administration Aspirin 81 mg 12/18/18 10:00 12/18/18 09:38 Halfprin Ec PO 81 mg QDAY JAZMINE Administration Atorvastatin Calcium 40 mg 12/18/18 10:00 12/18/18 09:37 Lipitor PO 40 mg DAILY JAZMINE Administration Carvedilol 25 mg 12/18/18 10:00 12/18/18 22:23 Coreg PO 25 mg BID JAZMINE Administration Dextrose 50 ml 12/18/18 06:24 D50w (25gm) Syringe IV PRN PRN Hypoglycemia Enoxaparin Sodium 40 mg 12/18/18 10:00 12/18/18 09:39 Lovenox SUB-Q 40 mg QDAY@1000 JAZMINE Administration Gabapentin 100 mg 12/18/18 14:00 12/19/18 05:27 Neurontin PO 100 mg Q8HR JAZMINE Administration Glipizide 10 mg 12/18/18 08:00 12/18/18 18:09 Glucotrol Xl PO 10 mg BIDDIAB JAZMINE Administration Hydralazine HCl 5 mg 12/17/18 22:04 Apresoline IV Q6H PRN Hypertension Insulin Human Lispro 0 unit 12/18/18 07:30 12/18/18 22:25 Humalog SUB-Q 4 unit ACHS JAZMINE Administration Protocol Metformin HCl 1,000 mg 12/18/18 08:00 12/18/18 08:25 Glucophage PO 1,000 mg QDDIAB JAZMINE Administration Morphine Sulfate 2 mg 12/17/18 22:00 12/18/18 23:10 Morphine IV 2 mg Q4H PRN Administration Pain, Moderate (4-6) Nicotine 14 mg 12/18/18 11:00 12/18/18 10:58 Habitrol TD 14 mg QDAY JAZMINE Administration Ondansetron HCl 4 mg 12/17/18 22:00 Zofran IV Q4H PRN Nausea And Vomiting Sodium Chloride 10 ml 12/17/18 22:00 12/18/18 22:25 Sodium Chloride Flush Syringe 10 Ml IV 10 ml BID JAZMINE Administration Sodium Chloride 10 ml 12/17/18 22:00 Sodium Chloride Flush Syringe 10 Ml IV PRN PRN LINE FLUSH
[2018-12-19] MEDS: COREG PO SCH ×2 (10:23→22:16)
[2018-12-19] MEDS: HABITROL TD SCH (10:23)
[2018-12-19] MEDS: NORVASC PO SCH (10:23)
[2018-12-19] MEDS: HALFPRIN EC PO SCH (10:23)
[2018-12-19] MEDS: HumaLOG SUB-Q SCH ×4 (10:24→23:00)
[2018-12-19] MEDS: LOVENOX SUB-Q SCH (10:24)
[2018-12-19] MEDS: GLUCOPHAGE PO SCH (10:24)
[2018-12-19] MEDS: GLUCOTROL XL PO SCH ×2 (10:24→17:14)
[2018-12-19] MEDS: SODIUM CHLORIDE FLUSH SYRINGE 10 ML IV SCH ×2 (10:25→23:02)
--- NOTE | 2018-12-19 10:33 | Progress Note ---
Assessment and Plan Cardiac-noble he seems to be doing reasonably well today. No significant chest pain to suggest angina. Cardiac rhythm is stable. Continue current management. His current main issue appears to be leg pains and he claims gabapentin is not helping him much. - Patient Problems (1) Chest pain Current Visit: Yes Status: Acute (2) GERD (gastroesophageal reflux disease) Current Visit: No Status: Acute (3) CAD (coronary artery disease) Current Visit: No Status: Chronic (4) HTN (hypertension) Current Visit: No Status: Chronic Qualifiers: Hypertension type: essential hypertension Qualified Code(s): I10 - Essential (primary) hypertension (5) History of PTCA Current Visit: No Status: Chronic (6) Hyperlipidemia Current Visit: No Status: Chronic (7) Ischemic cardiomyopathy Current Visit: No Status: Chronic Subjective Date of service: 12/19/18 Interval history: No significant chest pain patient continues to complain about leg pains. Objective Vital Signs Temp Pulse Pulse Pulse Pulse Resp Resp 12/19/18 08:54 98.0 F 72 16 12/19/18 04:26 98.4 F 62 20 12/19/18 03:32 70 12/19/18 03:22 64 12/18/18 23:22 97.8 F 72 20 12/18/18 22:23 70 12/18/18 22:00 20 12/18/18 21:54 70 12/18/18 21:53 12/18/18 21:46 67 12/18/18 21:03 64 64 18 12/18/18 20:21 98.4 F 64 18 12/18/18 20:00 66 12/18/18 13:55 76 12/18/18 13:35 77 Resp Resp BP Pulse Ox 12/19/18 08:54 124/64 96 12/19/18 04:26 136/59 96 12/19/18 03:32 16 12/19/18 03:22 16 12/18/18 23:22 138/63 98 12/18/18 22:23 138/56 12/18/18 22:00 20 12/18/18 21:54 16 12/18/18 21:53 98 12/18/18 21:46 18 12/18/18 21:03 96 12/18/18 20:21 138/56 96 12/18/18 20:00 12/18/18 13:55 18 12/18/18 13:35 18 - Physical Examination General: No Apparent Distress Neck: Positive: neck supple Cardiac: Positive: Reg Rate and Rhythm Lungs: Positive: clear to auscultation Abdomen: Positive: Soft Extremities: Present: normal - Imaging and Cardiology EKG: image reviewed
[2018-12-19] MEDS: TRIMOX PO SCH (22:17)
[2018-12-19] MEDS: MORPHINE IV PRN (22:17)
[2018-12-20] MEDS: DUONEB *Not for PRN Use IH SCH ×3 (02:45→14:27)
[2018-12-20 05:19] VITALS: BP 140/71
[2018-12-20] MEDS: NEURONTIN PO SCH ×2 (05:43→13:53)
[2018-12-20] MEDS: TRIMOX PO SCH ×2 (05:43→13:53)
[2018-12-20] MEDS: HumaLOG SUB-Q SCH ×2 (07:53→12:59)
[2018-12-20] MEDS: GLUCOTROL XL PO SCH (10:25)
[2018-12-20] MEDS: HABITROL TD SCH (10:25)
[2018-12-20] MEDS: COREG PO SCH (10:25)
[2018-12-20] MEDS: GLUCOPHAGE PO SCH (10:25)
[2018-12-20] MEDS: LOVENOX SUB-Q SCH (10:25)
[2018-12-20] MEDS: NORVASC PO SCH (10:25)
[2018-12-20] MEDS: HALFPRIN EC PO SCH (10:25)
[2018-12-20] MEDS: SODIUM CHLORIDE FLUSH SYRINGE 10 ML IV SCH (10:26)
--- NOTE | 2018-12-20 11:32 | Discharge Summary ---
Providers - Providers Date of Admission: 12/17/18 22:00 Date of discharge: 12/20/18 Attending physician: ANTOINETTE SOTO 12/17/18 22:00 Consult to Physician [CONS] Routine Comment: Consulting Provider: MYA CHUNG Physician Instructions: Reason For Exam: angel Primary care physician: [facility], Hospitalization Reason for admission: Epigastric and chest pain of 1-2 days duration Condition: Stable Pertinent studies: CT chest Neck CT Chest x-ray Hospital course: 58-year-old male patient with significant history of coronary artery disease, congestive heart failure, hypertension, diabetes mellitus, dyslipidemia ,status post AICD was admitted through emergency room with epigastric pain and not feeling well Patient was admitted to the hospital symptomatically managed subsequently evaluated by yeast distiller Patient also has history of peripheral arterial disease with lower extremity discomfort and pain Patient's symptoms significantly and gradually improved today's comfortable in bed no new complaints vital signs stable Cardiology did not recommend any procedures, for discharge and follow up with them in the office upon discharge Patient also strongly advised to follow private vascular surgeon for further evaluation of his peripheral vascular disease The patient is hemodynamically and clinically stable for discharge Smoking cessation counseling done advised nicotine patch Discharge diagnosis: --Unstable angina; continue current cardiac medications Cardiology evaluation noted and appreciated, IA screen 3 negative Supportive care --History of coronary artery disease; continue current cardiac medications Cardiology following --Acute on chronic systolic congestive heart failure Continue current failure medications low-sodium diet --Type 2 diabetes mellitus; Accu-Cheks sliding scale coverage ADA diet Insulin as needed --Peripheral arterial disease; continue aspirin and statin Follow-up with private vascular surgeon for further evaluation and management --Dyslipidemia; continue statin --DVT prophylaxis; Lovenox --Hoarseness; for many years, patient advised many times to see ENT For further evaluation as outpatient Plan monitor patient closely and adjust the management as needed Follow-up cardiology evaluation and recommendations Disposition: DC-01 TO HOME OR SELFCARE Time spent for discharge: 32 min Core Measure Documentation - Palliative Care Palliative Care/ Comfort Measures: Not Applicable - Core Measures Any of the following diagnoses?: none Exam - Constitutional Vitals: Temp Pulse Resp BP Pulse Ox 97.9 F 66 18 140/71 98 12/20/18 04:52 12/20/18 09:26 12/20/18 09:26 12/20/18 04:52 12/20/18 04:52 General appearance: Present: no acute distress, well-nourished - EENT Eyes: Present: PERRL, EOM intact - Neck Neck: Present: supple, normal ROM - Respiratory Respiratory effort: normal Respiratory: bilateral: diminished, negative: rales, rhonchi, wheezing - Cardiovascular Rhythm: regular Heart Sounds: Present: S1 & S2 - Extremities Extremities: no ischemia, No edema - Abdominal General gastrointestinal: Present: soft, non-tender, non-distended, normal bowel sounds - Integumentary Integumentary: Present: clear, warm - Musculoskeletal Musculoskeletal: strength equal bilaterally - Psychiatric Psychiatric: appropriate mood/affect, cooperative - Neurologic Neurologic: moves all extremities Plan Activity: no restrictions Diet: diabetic Additional Instructions: Advised to see private vascular surgeon 1-2 wks. Advised see dentist for further evaluation of his tooth /gum infection [facility] REGINA [Primary Care Provider] - 3-5 Days REJI CHUNG MD [Staff Physician] - 7 Days Prescriptions: Nicotine [Habitrol] 14 mg TD QDAY #30 patch Amoxicillin [Trimox CAP] 500 mg PO Q8HR #30 capsule buPROPion [Wellbutrin] 200 mg PO BID #30 tab
--- NOTE | 2018-12-20 11:38 | Progress Note ---
Assessment and Plan Cardiac noble patient is doing well with no significant cardiac symptoms. Agree with the discharge plans. Patient is advised to come to the office for follow- up in about 2 weeks. - Patient Problems (1) Chest pain Current Visit: Yes Status: Acute (2) GERD (gastroesophageal reflux disease) Current Visit: No Status: Acute (3) CAD (coronary artery disease) Current Visit: No Status: Chronic (4) HTN (hypertension) Current Visit: No Status: Chronic Qualifiers: Hypertension type: essential hypertension Qualified Code(s): I10 - Essential (primary) hypertension (5) History of PTCA Current Visit: No Status: Chronic (6) Hyperlipidemia Current Visit: No Status: Chronic (7) Ischemic cardiomyopathy Current Visit: No Status: Chronic Subjective Date of service: 12/20/18 Interval history: Cardiac noble patient is doing well today no cardiac symptoms are noted. He still complains about leg pains intermittently Objective Vital Signs Temp Pulse Pulse Resp Resp Resp BP 12/20/18 10:00 18 12/20/18 09:26 66 18 12/20/18 09:16 73 18 12/20/18 07:00 68 12/20/18 04:52 97.9 F 70 18 140/71 12/20/18 02:56 79 19 12/20/18 02:47 77 17 12/20/18 01:23 98.5 F 77 20 12/19/18 22:35 79 20 12/19/18 22:27 78 19 12/19/18 22:17 20 12/19/18 22:16 76 156/63 12/19/18 22:00 20 12/19/18 19:27 72 12/19/18 17:10 98.3 F 78 16 145/83 12/19/18 14:54 68 20 12/19/18 14:44 70 20 Pulse Ox 12/20/18 10:00 96 12/20/18 09:26 12/20/18 09:16 12/20/18 07:00 12/20/18 04:52 98 12/20/18 02:56 12/20/18 02:47 12/20/18 01:23 94 12/19/18 22:35 12/19/18 22:27 12/19/18 22:17 12/19/18 22:16 12/19/18 22:00 12/19/18 19:27 12/19/18 17:10 99 12/19/18 14:54 12/19/18 14:44 - Physical Examination General: No Apparent Distress Neck: Positive: neck supple Cardiac: Positive: Reg Rate and Rhythm Lungs: Positive: clear to auscultation Neuro: Positive: Grossly Intact Abdomen: Positive: Soft Extremities: Present: normal - Imaging and Cardiology EKG: image reviewed
== END 2018-12-20 18:14 | disposition home or self-care (01) | DRG 302 ==
LOC: ED 14:56 → 4A 22:00
PROVIDERS: ADMIT Internal Medicine; ATTEND Internal Medicine
DX: I25.110 Atherosclerotic heart disease of native coronary artery with unstable angina pectoris (principal); I50.23 Acute on chronic systolic (congestive) heart failure; I11.0 Hypertensive heart disease with heart failure; M79.604 Pain in right leg; K21.9 Gastro-esophageal reflux disease without esophagitis; E78.5 Hyperlipidemia, unspecified; I25.5 Ischemic cardiomyopathy; E11.51 Type 2 diabetes mellitus with diabetic peripheral angiopathy without gangrene; R49.0 Dysphonia; F17.200 Nicotine dependence, unspecified, uncomplicated; I65.29 Occlusion and stenosis of unspecified carotid artery; M19.90 Unspecified osteoarthritis, unspecified site; G47.30 Sleep apnea, unspecified; F31.9 Bipolar disorder, unspecified; R13.10 Dysphagia, unspecified; Z82.49 Family history of ischemic heart disease and other diseases of the circulatory system; Z95.810 Presence of automatic (implantable) cardiac defibrillator; Z71.6 Tobacco abuse counseling; Z79.82 Long term (current) use of aspirin; Z79.899 Other long term (current) drug therapy; Z95.5 Presence of coronary angioplasty implant and graft; I25.2 Old myocardial infarction
CPT/HCPCS: 36415; 70491; 71046; 71275; 80048; 80307; 82550; 82553; 82962; 84484; 85007; 85025; 85610; 85730; 93005; 93010; 94640; 96374; 96376; 99285; 99406; G0378; A9270-GY; J0360; J1650; J1815; J2270; Q9967

== ENCOUNTER 2020-02-09 13:48 | Emergency (ER) | payer MEDICARE ==
[2020-02-09] MEDS ORDERED: FAMOTIDINE 20 MG/2 ML INJ IV ONE (14:34)
[2020-02-09] MEDS ORDERED: ALUM-MAG HYDROXIDE-SIMETHICONE 200-200-20MG/5ML ORAL LIQD 30 ML PO ONE (14:34)
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
--- NOTE | 2020-02-09 15:03 | XRay Report ---
CHEST 1 VIEW INDICATION: Chest Pain, gerd sx. COMPARISON: 12/17/2018 FINDINGS: Support devices: Stable satisfactory device positioning. Pacer leads are stable and unchanged. Heart: Within normal limits. Lungs/Pleura: Lungs are normally expanded and clear. No airspace disease or pleural effusion. Additional findings: None. IMPRESSION: 1. No acute findings. Signer Name: Chung Langston MD Signed: 02/09/2020 2:59 PM Workstation Name: [id number]
[2020-02-09 15:42] LABS: Basophils % (Auto) 0.5 % (0.0-1.8); Eosinophils % (Auto) 0.3 % (0.0-4.3); Hematocrit 43.6 % (35.5-45.6); Hemoglobin 14.4 gm/dl (11.8-15.2); Lymphocytes # (Auto) 1.3 K/mm3 (1.2-5.4); Lymphocytes % (Auto) 16.8 % (13.4-35.0); Mean Corpuscular HGB Conc 33 % (32-34); Mean Corpuscular Volume 86 fl (84-94); Monocytes # (Auto) 0.5 K/mm3 (0.0-0.8); Platelet Count 142 K/mm3 (140-440); Red Cell Distribution Width 14.6 % (13.2-15.2)
[2020-02-09 15:50] LABS: Bilirubin,Urine NEG (Negative); Blood,Urine NEG (Negative); Color,Urine Yellow (Yellow); Mucus,Urine FEW /HPF
[2020-02-09 15:58] LABS: Amphetamine Screen,Urine PRESUMPTIVE NEGATIVE; Benzodiazepines Screen,Urine PRESUMPTIVE NEGATIVE; Methadone Screen,Urine PRESUMPTIVE NEGATIVE; Opiate Screen,Urine PRESUMPTIVE NEGATIVE
[2020-02-09 16:14] LABS: Cannabinoid Screen,Urine PRESUMPTIVE POSITIVE; Cocaine Screen,Urine PRESUMPTIVE POSITIVE
[2020-02-09 16:21] LABS: Albumin 3.9 g/dL (3.9-5); Calcium 9.2 mg/dL (8.4-10.2)
[2020-02-09] MEDS ORDERED: INSULIN REGULAR, HUMAN 100 UNITS/1 ML IV ONE (16:41)
[2020-02-09 18:48] VITALS: BP 130/75
== END 2020-02-09 20:59 | disposition home or self-care (01) ==
LOC: ED 13:48
DX: K21.9 Gastro-esophageal reflux disease without esophagitis (principal); K30 Functional dyspepsia; E11.9 Type 2 diabetes mellitus without complications; F14.10 Cocaine abuse, uncomplicated; I11.0 Hypertensive heart disease with heart failure; I50.9 Heart failure, unspecified; M19.91 Primary osteoarthritis, unspecified site; F31.9 Bipolar disorder, unspecified; F17.200 Nicotine dependence, unspecified, uncomplicated; Z91.19 Patient's noncompliance with other medical treatment and regimen; Z98.890 Other specified postprocedural states; Z79.84 Long term (current) use of oral hypoglycemic drugs; Z79.899 Other long term (current) drug therapy
CPT/HCPCS: 36415; 71045; 80053; 80307; 81001; 82962; 83690; 83735; 84484; 85025; 93005; 96374; 96375; J1815

== ENCOUNTER 2020-05-22 08:55 | Emergency (ER) | payer MEDICARE ==
[2020-05-22] MEDS ORDERED: dexAMETHasone 20 MG/5 ML VIAL IV ONE (10:57)
[2020-05-22] MEDS ORDERED: MORPHINE 2 MG/1 ML INJ IV ONE (10:58)
--- NOTE | 2020-05-22 11:00 | Event Note ---
ED Screening Note Date of service: 05/22/20 Time: 10:55 ED Screening Note: This is a 59-year-old male presents the ED complaining of difficulty swallowing and pain in the throat. Patient states his symptoms started yesterday. Patient is complaining of difficulty swallowing movements. In extreme pain. rapid strep collected This initial assessment/diagnostic orders/clinical plan/treatment(s) is/are subject to change based on patients health status, clinical progression and re-assessment by fellow clinical providers in the ED. Further treatment and workup at subsequent clinical providers discretion. Patient/guardian urged not to elope from the ED as their condition may be serious if not clinically assessed and managed. Initial orders include: CT soft tissue neck Decadron Pain medicine
[2020-05-22] MEDS ORDERED: methylPREDNISolone Sod Succinate 125 MG/2 ML INJ IV ONE (11:07)
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
[2020-05-22 11:53] LABS: Basophils % (Auto) 0.4 % (0.0-1.8); Eosinophils % (Auto) 0.2 % (0.0-4.3); Hematocrit 43.3 % (35.5-45.6); Hemoglobin 14.4 gm/dl (11.8-15.2); Lymphocytes # (Auto) 2.5 K/mm3 (1.2-5.4); Mean Corpuscular HGB Conc 33 % (32-34); Mean Corpuscular Volume 86 fl (84-94); Monocytes # (Auto) 0.7 K/mm3 (0.0-0.8); Monocytes % (Auto) 8.2 % (0.0-7.3); Platelet Count 173 K/mm3 (140-440); Red Blood Count 5.03 M/mm3 (3.65-5.03); Red Cell Distribution Width 15.4 % (13.2-15.2)
[2020-05-22 12:11] LABS: Calcium 9.7 mg/dL (8.4-10.2)
[2020-05-22] MEDS ORDERED: SODIUM CHLORIDE 0.9% 250ML 250 ML IV ONE (12:15)
--- NOTE | 2020-05-22 12:17 | XRay Report ---
SOFT TISSUE NECK, 2 VIEWS HISTORY: Throat/neck pain COMPARISON: CT neck dated 12/17/2018 FINDINGS: The base of the tongue, epiglottis, prevertebral soft tissues and upper airway are unremarkable. No o bvious mass or inflammatory changes. There is extensive ossification of the anterior longitudinal ligament from the levels of C2-C7 sugges ting diffuse idiopathic skeletal hyperostosis. Signer Name: Brice Bellamy Jr, MD Signed: 05/22/2020 12:13 PM Workstation Name: [id number]
--- NOTE | 2020-05-22 13:02 | Cat Scan Report ---
CT NECK WITH INTRAVENOUS CONTRAST AND MULTIPLANAR RECONSTRUCTION CLINICAL HISTORY: Difficulty swallowing TECHNIQUE: 2.5 mm thick contiguous axial scans were obtained from the skull base down to the aortic arch during intravenous contrast administration. In addition to evaluation of axial source images sagittal and co shari multiplanar reconstructions were produced and reviewed for this report. All CT imaging studies performed at this facility utilize dose modulation, iterative reconstruction o r weight based dosing, if appropriate, to obtain the lowest achievable radiation dose. COMPARISON: CT neck 12/17/2018 FINDINGS: Interval development of asymmetrical soft tissue fullness is seen in the vicinity of the left palatin e tonsillar fossa. Consider possible tonsillitis. I do not identify an abscess. Given the patient's a ge direct visualization of this region is suggested to exclude the presence of a mucosal lesion. No a dditional abnormalities are seen along the course of the airway. Nasopharynx, hypopharynx, larynx and visualized portions of the subglottic airway all have an unremarkable appearance. There is no indication of cervical lymphadenopathy. There is remarkable enlargement of the thyroid process and ossification of the stylohyoid ligament. T here is a pseudoarthrosis between the ossified stylohyoid ligament and the hyoid bone on the left. In comparison to previous study there has been fracture through the ossified stylohyoid ligament on the left (sagittal series 602, image 56). Prominent torus palatini and lateral torus maxillaris is observed. This is unchanged. No additional a bnormalities are seen in evaluation of the oral cavity and tongue. The floor the mouth has a normal a ppearance. The parotid and submandibular salivary glands have a normal appearance. Evaluation of the nasal cavity reveals no abnormality. Inflammatory changes are present in the left s phenoid sinus. Similar findings were present on previous study. The paranasal sinuses are otherwise f ree from inflammatory mucosal disease. Evaluation of the visualized portions of the orbits reveals no abnormality. The thyroid gland is normal in size and homogeneous in attenuation. No focal thyroid lesions are iden tified. There is bony ankylosis of anterior longitudinal ligament resulting in fusion at the C4-5 and C5-6 le vels. Confluent right lateral osteophyte results in fusion across the C6-7 interspace. Prominent ante rior osteophyte formation is observed elsewhere. Posterior osteophyte at the C5-6 contributes to cent ral canal stenosis. Facet and uncovertebral arthropathy contribute to multifocal neuroforaminal steno sis. These findings are unchanged. Evaluation of the lung apices reveals no abnormality. There is no indication of lung nodule or infilt rate. The visualized portions of the superior mediastinum have an unremarkable appearance. Enhancement of normal vascular structures is demonstrated. No areas of abnormal contrast enhancement are identified. IMPRESSION: 1. Interval development of asymmetry of soft tissues with increased soft tissue fullness in the regio n of the left palatine tonsillar fossa. Possibility of tonsillitis could be considered. Correlation w ith direct visualization of this region is suggested to exclude a mucosal lesion. 2. Extensive ossification of the stylohyoid ligaments as described above. In the interval since the p receding study there is been a fracture through the proximal ossified stylohyoid ligament on the left . 3. 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 Signer Name: Stewart Lomeli MD Signed: 05/22/2020 12:58 PM Workstation Name: [id number]
[2020-05-22] MEDS ORDERED: LIDOCAINE VISCOUS 2% 15 ML ORAL LIQD PO ONE (13:20)
[2020-05-22 14:35] VITALS: BP 118/64
== END 2020-05-22 14:33 | disposition home or self-care (01) ==
LOC: ED 08:55
DX: J02.9 Acute pharyngitis, unspecified (principal); I50.9 Heart failure, unspecified; I11.0 Hypertensive heart disease with heart failure; I25.2 Old myocardial infarction; E11.9 Type 2 diabetes mellitus without complications; K21.9 Gastro-esophageal reflux disease without esophagitis; M19.91 Primary osteoarthritis, unspecified site; F31.9 Bipolar disorder, unspecified; F17.200 Nicotine dependence, unspecified, uncomplicated; Z98.890 Other specified postprocedural states; Z79.2 Long term (current) use of antibiotics; Z79.84 Long term (current) use of oral hypoglycemic drugs; Z79.899 Other long term (current) drug therapy
CPT/HCPCS: 36415; 70360; 70491; 80048; 85025; 87116; 87430; 96361; 96365; 96375; 99284; J2270; J2930; J7050; Q9967

== ENCOUNTER 2021-09-03 19:59 | Emergency (ER) | payer OTHER, MEDICARE ==
[2021-09-03] MEDS ORDERED: IBUPROFEN 800 MG TAB PO ONE (21:07)
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
[2021-09-03 22:34] VITALS: BP 122/78
== END 2021-09-03 22:32 | disposition home or self-care (01) ==
LOC: ED 19:59
DX: S13.4XXA Sprain of ligaments of cervical spine, initial encounter (principal); I11.0 Hypertensive heart disease with heart failure; I50.9 Heart failure, unspecified; E11.9 Type 2 diabetes mellitus without complications; F17.290 Nicotine dependence, other tobacco product, uncomplicated; V89.2XXA Person injured in unspecified motor-vehicle accident, traffic, initial encounter; Y93.89 Activity, other specified; Y92.488 Other paved roadways as the place of occurrence of the external cause; Y99.8 Other external cause status; Z79.899 Other long term (current) drug therapy; Z95.5 Presence of coronary angioplasty implant and graft; Z95.0 Presence of cardiac pacemaker
CPT/HCPCS: 72040; 99283

== ENCOUNTER 2021-09-27 11:13 | Emergency (ER) | payer MEDICARE, OTHER ==
[2021-09-27 11:19] VITALS: BP 132/86
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
[2021-09-27] MEDS ORDERED: IBUPROFEN ORAL LIQD 100 MG/5 ML ORAL.LIQD PO ONE (11:28)
== END 2021-09-27 11:49 | disposition home or self-care (01) ==
LOC: ED 11:13
DX: H92.02 Otalgia, left ear (principal); J06.9 Acute upper respiratory infection, unspecified; H72.92 Unspecified perforation of tympanic membrane, left ear; I10 Essential (primary) hypertension; E11.9 Type 2 diabetes mellitus without complications
CPT/HCPCS: 99283